=== PATIENT | female | born 1955 | race Caucasian/White ===

== ENCOUNTER 2018-01-10 01:54 | Observation (INO) | payer OTHER ==
[~2018-01-10] VITALS: Ht 175.3 cm; Wt 88.1 kg
[2018-01-10] MEDS ORDERED: PROTONIX40 M2 PO (02:22)
[2018-01-10] MEDS ORDERED: PAROXETINE20 MG PO (02:24)
[2018-01-10] MEDS ORDERED: CRESTOR10 MG PO (02:25)
[2018-01-10] MEDS ORDERED: PLAVIX75 MG PO (02:26)
[2018-01-10] MEDS ORDERED: SOTALOL HCL80 MG PO (02:27)
[2018-01-10] MEDS ORDERED: TGT OMEPRAZ20 MG PO (02:28)
[2018-01-10] MEDS ORDERED: B121000 MCG PO (02:29)
[2018-01-10] MEDS ORDERED: BLACK COHOSH40 MG PO (02:30)
[2018-01-10 02:34] LABS: HEMATOCRIT 39.5 % (37.0-47.0); HEMOGLOBIN 12.9 g/dl (12.0-16.0); IMMATURE GRANULOCYTES 0.2 % (0.0-1.0); MEAN CELL VOLUME 87.8 fL CALC (80.0-100.0); MEAN CORPUSCULAR HGB 28.7 pG CALC (26.0-32.0); MEAN CORPUSCULAR HGB CONC 32.7 g/L CALC (32.0-36.0); NEUT# 1.99 thou/uL (2.00-7.15); RED BLOOD COUNT 4.5 mill/uL (4.20-5.60); RED CELL DISTRI WIDTH 12.7 % (11.5-15.5)
[2018-01-10 02:40] LABS: ALBUMIN 4.2 g/dL (3.2-5.0); ALKALINE PHOSPHATASE 116 u/l (38-126); AMYLASE 64 u/l (30-110); ANION GAP 13 (6-22 (CALC)); BILIRUBIN, TOTAL 0.4 mg/dL (0.0-1.4); BUN 18 mg/dL (8-23); BUN/CREATININE RATIO 20 (12-20 (CALC)); CARBON DIOXIDE 26 mmol/l (22-30); CHLORIDE 106 mmol/l (95-108); CREATININE 0.9 mg/dL (0.5-1.0); GFR > 60 ML/MIN (>=60 (CALC)); GFR FOR AFR.AMER. > 60 ML/MIN (>=60 (CALC)); LIPASE 97 u/l (23-300); POTASSIUM 4.2 mmol/l (3.5-5.1); SGOT/AST 34 u/l (9-36); SGPT/ALT 29 u/l (11-66); SODIUM 140 mmol/l (137-146); TOTAL PROTEIN 7.5 g/dL (6.3-8.2)
[2018-01-10 02:52] LABS: MYOGLOBIN 47 ng/mL (0 - 62)
[2018-01-10 05:00] VITALS: BP 138/76
[2018-01-10 09:07] VITALS: BP 121/68
[2018-01-10 12:00] VITALS: BP 109/63
[2018-01-10 16:10] VITALS: BP 124/91
== END 2018-01-10 17:07 | disposition home or self-care (01) | DRG 313 ==
LOC: ED 01:54 → ED-I 03:04 → ED 04:00 → ICU 04:01 → MS2 04:46
PROVIDERS: Emergency Medicine; ADMIT Internal Medicine; ATTEND Internal Medicine
DX: R07.9 Chest pain, unspecified (principal); I10 Essential (primary) hypertension; J44.9 Chronic obstructive pulmonary disease, unspecified; I25.10 Atherosclerotic heart disease of native coronary artery without angina pectoris; K21.9 Gastro-esophageal reflux disease without esophagitis; I48.91 Unspecified atrial fibrillation; I25.2 Old myocardial infarction; Z85.3 Personal history of malignant neoplasm of breast; Z95.5 Presence of coronary angioplasty implant and graft; Z85.42 Personal history of malignant neoplasm of other parts of uterus; R06.02 Shortness of breath
CPT/HCPCS: G0378

== ENCOUNTER 2018-03-26 18:02 | Emergency (ER) | payer OTHER ==
[~2018-03-26] VITALS: Ht 175.3 cm; Wt 84.1 kg
[~2018-03-26 18:02] MED LIST: B121000 MCG PO; BLACK COHOSH40 MG PO; CRESTOR10 MG PO; PAROXETINE20 MG PO; PLAVIX75 MG PO; PROTONIX40 M2 PO; SOTALOL HCL80 MG PO; TESSALON PERLE100 MG PO; TGT OMEPRAZ20 MG PO; ULTRAM50 M1 PO; ZPAK PO
[2018-03-26 18:47] LABS: HEMATOCRIT 39.4 % (37.0-47.0); HEMOGLOBIN 12.9 g/dl (12.0-16.0); IMMATURE GRANULOCYTES 0.2 % (0.0-5.0); MEAN CELL VOLUME 87.6 fL CALC (80.0-100.0); MEAN CORPUSCULAR HGB 28.7 pG CALC (26.0-32.0); MEAN CORPUSCULAR HGB CONC 32.7 g/L CALC (32.0-36.0); NEUT# 1.74 thou/uL (2.00-7.15); RED BLOOD COUNT 4.5 mill/uL (4.20-5.60); RED CELL DISTRI WIDTH 13.1 % (11.5-15.5)
[2018-03-26 19:02] LABS: ALBUMIN 4.5 g/dL (3.2-5.0); ALKALINE PHOSPHATASE 108 u/l (38-126); ANION GAP 15 (6-22 (CALC)); BILIRUBIN, TOTAL 0.4 mg/dL (0.0-1.4); BUN 18 mg/dL (8-23); BUN/CREATININE RATIO 20 (12-20 (CALC)); CARBON DIOXIDE 27 mmol/l (22-30); CHLORIDE 105 mmol/l (95-108); CREATININE 0.9 mg/dL (0.5-1.0); GFR > 60 ML/MIN (>=60 (CALC)); GFR FOR AFR.AMER. > 60 ML/MIN (>=60 (CALC)); LIPASE 128 u/l (23-300); POTASSIUM 4.2 mmol/l (3.5-5.1); SGOT/AST 26 u/l (9-36); SGPT/ALT 30 u/l (11-66); SODIUM 142 mmol/l (137-146); TOTAL PROTEIN 7.5 g/dL (6.3-8.2)
[2018-03-26 19:09] LABS: URINE BILIRUBIN - DIPSTICK NEGATIVE (NEGATIVE); URINE BLOOD DIPSTICK NEGATIVE (NEGATIVE); URINE COLOR YELLOW; URINE GLUCOSE - DIPSTICK NEGATIVE (NEGATIVE); URINE KETONE TRACE mg/dL (NEGATIVE); URINE LEUK ESTERASE NEGATIVE (NEGATIVE); URINE NITRITE - DIPSTICK NEGATIVE (Negative); URINE PH 5.5 (4.5-8.0); URINE PROTEIN - DIPSTICK NEGATIVE (NEG-TRACE); URINE SPECIFIC GRAVITY >=1.030; URINE UROBILINOGEN - DIPSTICK 0.2 E.U./dL (0.2)
[2018-03-26 19:10] LABS: URINE CLARITY CLEAR
[2018-03-26] MEDS ORDERED: LOMOTIL2.5 MG PO (21:35)
[2018-03-26 21:40] VITALS: BP 122/82
== END 2018-03-26 21:47 | disposition home or self-care (01) ==
LOC: ED 18:02
PROVIDERS: Family Medicine
DX: A08.4 Viral intestinal infection, unspecified (principal); I10 Essential (primary) hypertension; J44.9 Chronic obstructive pulmonary disease, unspecified; I48.91 Unspecified atrial fibrillation; I25.2 Old myocardial infarction; Z95.5 Presence of coronary angioplasty implant and graft
CPT/HCPCS: Q9967